=== PATIENT | female | born 1990 | race Caucasian/White ===

== ENCOUNTER → 2016-10-20 | Outpatient (CLI) | payer OTHER ==
[~2016-10-20] MED LIST: AMOX250S5 PO; FRRS300 PO; PENI250S14 PO; PRENTAB26 PO
[2016-10-20 13:09] LABS: HEMATOCRIT 42.9 % (37-47); MEAN CELL VOLUME 90.5 fL (80-100); MEAN CORPUSCULAR HEMOGLOBIN 28.9 pg (25-34); MEAN CORPUSCULAR HGB CONC 31.9 g/dl (32-36); PLATELET COUNT 311 K/uL (130-400); RED BLOOD COUNT 4.74 M/uL (4.2-5.4); WHITE BLOOD COUNT 6.28 K/uL (4.8-10.8)
[2016-10-20 13:27] LABS: ESTIMATED AVERAGE GLUCOSE 94 mg/dl; HA1C FLAG Normal (Normal)
[2016-10-20 13:37] LABS: ALT/SGPT 15 U/L (12-78); AST/SGOT 14 U/L (15-37); BLOOD UREA NITROGEN 12 mg/dl (7-18); BUN/CREATININE RATIO 21.2 (10-20); CALCIUM 8.7 mg/dl (8.5-10.1); CARBON DIOXIDE 29 mmol/L (21-32); CHLORIDE 107 mmol/L (98-107); CREATININE 0.58 mg/dl (0.60-1.20); GLUCOSE 83 mg/dl (70-99); POTASSIUM 3.8 mmol/L (3.5-5.1); SODIUM 142 mmol/L (136-145)
[2016-10-20 13:47] LABS: ALB/GLOB RATIO 1.1 (0.9-2); ALKALINE PHOSPHATASE 52 U/L (45-117)
== END | disposition home or self-care (01) ==
LOC: C.LAB1850 12:23
PROVIDERS: ATTEND Internal Medicine
DX: R53.83 Other fatigue (principal); K59.00 Constipation, unspecified

== ENCOUNTER → 2016-11-08 | Outpatient (CLI) | payer OTHER ==
--- NOTE | 2016-11-08 09:26 | DIAGNOSTIC IMAGING REPORT ---
BILIARY ULTRASOUND CLINICAL HISTORY: R10.11 Right upper quadrant abdominal pain of unknown etiology COMPARISON STUDY: 07/08/2013 FINDINGS: Pancreas appears sonographically normal. The gallbladder appears sonographically normal. The liver appears sonographically normal. There is no right-sided hydronephrosis. There is no ductal dilatation. The common bile duct measures 3 mm. IMPRESSION: Normal biliary ultrasound. Electronically signed by: Pavel Landeros M.D. 11/08/2016 9:24 AM Dictated Date/Time: 11/08/2016 9:23 AM
== END | disposition home or self-care (01) ==
LOC: C.ULTR 08:37
PROVIDERS: ATTEND Internal Medicine
DX: R10.11 Right upper quadrant pain (principal)

== ENCOUNTER 2017-03-02 08:53 | Emergency (ER) | payer OTHER ==
[~2017-03-02] VITALS: Ht 152.4 cm; Wt 46.5 kg
[~2017-03-02 08:53] MED LIST changes: -AMOX250S5 PO
[2017-03-02 09:03] VITALS: TEMP 37.1; Ht 152.4 cm; Wt 46.5 kg
[2017-03-02] MEDS ORDERED: KETOROLAC TROMETHAMINE 60 MG/2 ML VIAL IM STA (09:47)
--- NOTE | 2017-03-02 10:26 | DIAGNOSTIC IMAGING REPORT ---
CHEST 2 VIEWS ROUTINE HISTORY: PRODUCTIVE COUGH X 1 WEEK COMPARISON: Chest 05/05/2006. FINDINGS: The lungs are clear. Cardiac silhouette is normal in size. No pleural effusions. No pneumothorax. IMPRESSION: No acute process. Electronically signed by: Remy Owusu M.D. 03/02/2017 10:25 AM Dictated Date/Time: 03/02/2017 10:24 AM
[2017-03-02] MEDS ORDERED: AMOXICILLIN 250 MG CAP PO STA (10:52)
[2017-03-02] MEDS ORDERED: AMOX250S5 PO (11:00)
[2017-03-02] MEDS ORDERED: ALBUTEROL HFA 8 GM INHALER INH ONE (11:00)
--- NOTE | 2017-03-02 11:01 | EMERGENCY ROOM VISIT NOTE ---
History First contact with patient: : Chief Complaint: ILLNESS Stated Complaint: AB PAIN,CAN'T HEAR OUT OF RIGHT EAR History of Present Illness Patient is an otherwise healthy 26-year-old white female who presents the emergency department for evaluation of cough and upper respiratory symptoms 1 week with now right ear pain and left upper abdominal discomfort. Patient reports that she has had congestion, cough and sore throat for about a week. She reports the cough is productive. She has not been taking any medication for her symptoms. She notes that while coughing last evening, she had the acute onset of a pop in her right ear. She notes that she could not hear properly out of the ear, describing it as feeling like there was an echo in her ear. Since this morning she cannot hear anything out of the right ear and notes that it is painful. Also, this morning she states that she was laying on her back when she had a coughing fit, afterwards she had some left upper abdominal discomfort. She states that the pain is only there when she coughs or when she engages her abdominal muscles like when she sits up. The pain does not radiate. She has no chest pain, no palpitations or shortness of breath. She has not had any fevers. She rates her discomfort a 6/10. She is [place] student and has young children at home, all of whom have been sick. She is not a smoker. Review of Systems Review of systems as per HPI. All other systems reviewed were negative. At least 6 systems reviewed. Past Medical/Surgical History Medical Problems: (1) INDUCTION OF LABOR (2) Intrauterine (3) No Known Active Medical Problems (4) Pain, dental (5) Periapical abscess (6) Periapical abscess Surgical Problems: (1) H/O wisdom tooth extraction (2) [place] Teeth Removal Electronic medical records are reviewed and summarized as above/below. See Problem List. Family History Diabetes mellitus Hypertension Social History Smoking Status: Never Smoker Alcohol Use: none Marital Status: Housing Status: lives with family Occupation Status: unemployed Current/Historical Medications Scheduled Amoxicillin (Amoxil), 10 ML PO Q8 Physical Exam Vital Signs Date Time Temp Pulse Resp B/P (MAP) Pulse Ox O2 Delivery O2 Flow Rate FiO2 03/02/17 11:20 81 16 112/86 99 03/02/17 09:03 37.1 89 18 133/82 98 Physical Exam MENTAL STATUS: Alert and cooperative. Nontoxic appearing. HEAD: Atraumatic, without temporal or scalp tenderness. EYES: PERRL, EOMI, no discharge or injection. EARS: Examination of the right ear notes the TM to be bulging, erythematous with purulent effusion. No perforation noted. Left TM intact, not inflamed, have normal contour. External canals clear. NOSE: Nares patent, turbinates edematous and boggy with clear rhinorrhea. MOUTH: Mucous membranes moist, no lesions, tongue and gums appear normal. THROAT: No pharyngeal injection, exudates, or tonsillar hypertrophy. Airway is patent. NECK: Supple, nontender, no lymphadenopathy. HEART: Regular rate and rhythm without murmurs, ectopy, gallops, or rubs. LUNGS: Clear to auscultation and breath sounds equal, no wheezes, rales, or rhonchi. ABDOMEN: Bowel sounds are present. Abdomen is soft, nontender, nondistended. She has some reproducible discomfort at the left costal margin along the rib. SKIN: Normal. NEUROLOGICAL: Sensory and motor functions grossly intact. Normal gait. Medical Decision & Procedures ER Provider Diagnostic Interpretation: CHEST 2 VIEWS ROUTINE HISTORY: PRODUCTIVE COUGH X 1 WEEK COMPARISON: Chest 05/05/2006. FINDINGS: The lungs are clear. Cardiac silhouette is normal in size. No pleural effusions. No pneumothorax. IMPRESSION: No acute process. Laboratory Results Test 03/02/17 09:10 Urine Test NEG (NEG) Medications Administered Medications (Trade) Dose Ordered Sig/Minal Route Start Time Stop Time Status Last Admin Dose Admin Ketorolac Tromethamine (Toradol Inj) 60 mg NOW STAT IM 03/02/17 09:47 03/02/17 09:50 DC 03/02/17 10:00 60 MG Albuterol (Ventolin Hfa Inhaler) 2 puffs NOW ONCE INH 03/02/17 11:00 03/02/17 11:01 DC 03/02/17 11:17 2 PUFFS ED Course The patient was seen and examined as above. Old records are reviewed. Patient was medicated with Toradol 60 mg IM for her discomfort. Chest x-ray was obtained and was without evidence for acute consolidation, infiltrates or failure. Patient has evidence for an acute right otitis media. She has had a fairly vigorous cough for over a week. I suspect the pain she has in the left upper ribs/abdomen is muscular in nature. Her abdominal exam is otherwise benign. Urine dip and were clear. Conservative care measures were discussed. Patient was issued an albuterol inhaler with a spacer and instructed on its use. She was placed on amoxicillin for the otitis media. The patient rated her discomfort a 6/10 at discharge. Patient was encouraged to use [id number] medication for discomfort. She reports that she cannot swallow pills. She was therefore not prescribed any Tessalon. She declined Hycodan. She was encouraged to follow up with her primary care provider for further care and evaluation if her symptoms are not improving. Differential diagnoses entertained included URI, bronchitis, pneumonia, sinusitis, otitis media, otitis externa, TM perforation, among others. Medical Decision See Emergency Department course Medication Reconcilliation Current Medication List: was personally reviewed by me Blood Pressure Screening Patient's blood pressure: Normal blood pressure Impression Primary Impression: Right otitis media Additional Impression: Upper respiratory infection Departure Information Prescriptions Amoxicillin (AMOXIL) 250 Mg/5 Ml Susp 10 ML PO Q8 for 10 Days, #300 ML Prov: Carrie Hayes PA 03/02/17 Referrals No Doctor, Assigned (PCP) Patient Instructions My [facility] Additional Instructions Amoxicillin 250 mg per 5 mL: Take 10 mL 3 times daily for 10 days for your ear infection. All antibiotics can cause diarrhea. If this occurs and you feel worse or it does not resolve in 1-2 days follow up with your doctor or return to the Emergency Department as this could be signs of serious underlying problems. Any medication can cause an allergic reaction, stop the pills immediately and return to the ER for rash, hives, breathing difficulties, or swelling. Acetaminophen(Tylenol) may be used for fever or pain. Use 1000mg every six hours as needed. Avoid using more than 3000mg in a 24 hour period. (AND/OR) Ibuprofen(Motrin, Advil) may be used for fever or pain. Use 600mg every six hours as needed. Take with food. Avoid using more than 2400mg in a 24 hour period. Do not use 2400mg per day for more than three consecutive days without physician direction. Prolonged inappropriate use can lead to stomach upset or ulcers. Pseudoephedrine(Sudaphed): 30-60mg every 6 hours as needed for nasal congestion. Do not take this with other stimulant products or supplements. Guaifenesin (Mucinex) : Take 1200 mg every 12 hours as needed for nasal/chest congestion, to help thin secretions. Albuterol Inhaler: Take 2 puffs four times daily for seven days, then as needed. Rest and drink plenty of fluids. Continue current medications. Return to the ER for severe headache, neck stiffness, chest pain, difficulty breathing, fevers, vomiting, worsening of your condition, or as needed. Follow up with your primary physician this week for a recheck of your current condition. Problem Qualifiers
[2017-03-02 11:20] VITALS: BP 112/86; PULSE 81; O2SAT 99
== END 2017-03-02 11:22 | disposition home or self-care (01) ==
LOC: C.EDB 08:55 → C.EDC 11:22
DX: R10.10 Upper abdominal pain, unspecified (principal); H66.91 Otitis media, unspecified, right ear; J06.9 Acute upper respiratory infection, unspecified

== ENCOUNTER 2017-06-26 15:57 | Emergency (ER) | payer OTHER ==
[~2017-06-26] VITALS: Ht 152.4 cm; Wt 47.0 kg
[2017-06-26 16:36] VITALS: BP 138/89; PULSE 84; TEMP 36.9; O2SAT 99; Ht 152.4 cm; Wt 47.0 kg
[2017-06-26] MEDS ORDERED: PENI500T2 PO (17:01)
--- NOTE | 2017-06-27 17:01 | EMERGENCY ROOM VISIT NOTE ---
ED Visit Note First contact with patient: 16:40 CHIEF COMPLAINT: Tooth pain. HISTORY OF PRESENT ILLNESS: Ms. Mendez is a 27-year-old white female who ambulates into the complaining of maxillary incisor dental pain. She reports a progressive dental pain for hours over the left maxillary incisor for approximately one week. The pain is now steady and severe and radiates to the face. She has been using ibuprofen but has had mild/moderate relief of her discomfort has been getting became severe. Currently she is complaining of pain in the area of left maxillary incisor. S/ Hhe rates her discomfort 5/10. Her.is pain does radiate through into the left maxillary sinus and into the left frontal area. Her pain worsens with chewing and and palpation. She has ibuprofen with mild relief of her discomfort. She denies any associated symptoms including fevers, chills, sweats, dental trauma, facial swelling, sore throat, difficulty swallowing, voice changes, drooling. REVIEW OF SYSTEMS: As noted above in History of Present Illness. 8 body systems were reviewed with this patient and found to be negative unless noted above otherwise. PMH: Status post wisdom teeth extraction. CURRENT MEDICATION: Patient denies. ALLERGIES TO MEDICATION: Patient denies. SOCIAL HISTORY: Patient is currently employed; she lives with her children and feels safe in her home environment; she denies tobacco and alcohol use. PHYSICAL EXAM: Vital Signs: General: 27 year-old white female in mild distress due to pain, nontoxic appearing, afebrile and hemodynamically stable. Neurological: Awake, alert and oriented to person, place and time. Answering questions appropriately and following commands. Normal gait. Good hand eye coordination. No focal motor or sensory deficits. Skin: Warm, dry and pink. No soft tissue lesions, rashes, or trauma noted. HEENT: No facial swelling noted. There is a mild fullness to the upper lip without erythema. Airway is patent. Patient does have mild to moderate tenderness over both maxillary incisors with more pronounced on the left. I do not appreciate any cavities of the tooth. The gingiva just above the tooth is mildly erythematous but not edematous and is tender to palpation also. No abscesses, palpable. No cervical or submandibular lymphadenopathy. ED COURSE: Patient is assessed as noted above. A chest medication list was reviewed. Patient is educated about her findings and instructed on her treatment plan; she verbalizes understanding and agreement with this plan. CLINIC IMPRESSION: Dental pain. Possible early abscess. DISPOSITION: Patient discharged home in stable condition; prior to departure she was reassessed and subjectively reported she was feeling the same. PLAN: Alternate ibuprofen and acetaminophen every 3 hours for persistent pain. Patient was prescribed Pen-Vee K 500 mg 4 times a day for 10 days; she informed me she had trouble swallowing tablets so encouraged her to crush the tablets and mix with a small amount of water. Patient is encouraged to avoid foods that she had a bite into and consider using a liquid/mechanical soft diet. Patient was encouraged to keep her mouth clean with brushing, flossing and gargling with saltwater 5 times a day. Patient is encouraged to keep her upcoming appointment with this dentistry for definitive care and treatment. Patient was encouraged return ED for worsening/uncontrolled pain, uncontrolled swelling, fevers, facial swelling or any new/concerning symptoms.
== END 2017-06-26 17:06 | disposition home or self-care (01) ==
LOC: C.EDB 15:58 → C.EDD 17:06
DX: K08.89 Other specified disorders of teeth and supporting structures (principal); Z98.818 Other dental procedure status

== ENCOUNTER 2020-10-08 07:35 | Inpatient (IN) ==
[2020-10-08] MEDS ORDERED: OXYTOCIN 30 UNITS/500 ML BAG IV PRN ×4 (08:00→21:20)
[2020-10-08] MEDS ORDERED: LACTATED RINGER'S 1,000 ML IV PRN (08:00)
--- NOTE | 2020-10-08 08:15 | History & Physical Report ---
Date of Service October 08, 2020 Assessment & Plan (1) Encounter for induction of labor: Nirali Mendez is a 28y/o female at 40+ weeks here for induction of labor. Placed on heart monitoring, with tocometry Blood bank on hold given patient's history of iron deficiency anemia (last iron transfusion on 09/29) Initiate Pitocin with advance as tolerated for induction of labor Epidural anesthesia when requested Anticipate vaginal delivery Admission and Anticipated Discharge Date Admission Date: October 08, 2020 History of Present Illness Primary Care Provider: Miranda Zuñiga MD Nirali Mendez is a 30 y/o female at 40+ weeks, presenting for induction; complications with headaches this . Frequently attended OB appointments. infrequent mild contractions; good movement; no fluid loss; no vaginal blood loss Labs: (09/26/2020) Blood type: B+ Antibody screen: negative H.3 Hct: 33.3 WBC: 10.38 Plt: 296 Rubella: immune VDRL/RPR: negative Gonorrhea: negative Chlamydia: negative HIV: negative HbSAg: negative GBS negative negative Glucose tolerance test Allergies Allergy/AdvReac Type Severity Reaction Status Date / Time No Known Allergies Allergy ` Verified 10/07/20 10:57 Home Medications Medication Instructions Recorded Confirmed Type prenat.vits,onofre,cew-fosp-vdwhj 1 tab PO DAILY 02/29/20 10/08/20 History cyproheptadine 4 mg tablet 4 mg PO BID PRN 30 Days #60 tab 05/06/20 10/08/20 Rx magnesium 200 mg PO DAILY 10/08/20 10/08/20 History Past Med/Surg History Medical History Acute mastitis of left breast Bronchitis History of chicken pox Pain, dental Pelvic pain in Periapical abscess Sinusitis Surgical History S/P tooth extraction Family History Father Diabetes Hypertension Grandfather (Paternal) Diabetes Hypertension Pure hypercholesterolemia Grandmother (Maternal) Hypertension Pure hypercholesterolemia Grandmother (Paternal) Pure hypercholesterolemia Grandfather (Maternal) Pure hypercholesterolemia Denies family history of Ovarian cancer Breast cancer Colorectal cancer Social History Smoking Status: Never smoker Hx Alcohol Use: No Hx Substance Use: No Preferred Language: Andorran Communication Ability: Effective Visual Impairment: No Limitations Hearing Ability: Normal Silver Chaser Required: No Beliefs That Will Affect Care: None marital status: single marital status details: latonya Lamar (24) [phone] Current Living Situation: Spouse and Family Current Living Situation Comment: Lives at home with S/O and 4 daughters. 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 Other Information That Helps Us Care for You: No Feels Safe at Home: Yes Safety Concerns: Feels Safe At This Time Seatbelt Use: always Assistive Devices: None Review of Systems Review of Systems: Constitutional: denies fever; chills; sweats; headache Respiratory: denies shortness of breath, difficulty breathing Cardiac: denies chest pain; palpitations; chest pressure Breast: denies breast pain : denies dysuria Physical Exam Physical Exam: General: alert; oriented; no acute distress Cardiac: RRR; no m/g/r Respiratory: CTAB a/p; no wheezes/rales/rhonchi; no increased work of breathing; symmetrical chest rise; no respiratory distress Abdomen: soft; NT/ND; bowel sounds positive Lower extrem: no lower extremity edema or swelling; no deep calf pain; Luz's sign negative b/l Genitourinary: OB Exam Abdomen: + estimated weight (7-8#) OB Exam Monitor Tracing: + external FHT monitor used, + external uterine monitor used, + category I and + normal FHT variability Manual exam per Dr. Leiva Results & Data Results & Data ([facility]) Vital Signs (Past 12 Hours) Vital Signs Pulse BP 10/08/20 07:49 103 H 120/73 Medications Administered Current Inpatient Medications Oxytocin (Pitocin) 30 units in 500 mls @ 333.333 mls/hr IV .Q1H30M PRN; Protocol PRN Reason: Bleeding Control Stop: 11/07/20 07:59 Oxytocin (Pitocin) 30 units in 500 mls @ 2 mls/hr IV .Q24H PRN; Protocol PRN Reason: Labor Induction/Augmentation Stop: 10/10/20 07:59 Lactated Ringer's (Lr) 1,000 mls @ 125 mls/hr IV .Q8H PRN; Protocol PRN Reason: L&D Protocol Stop: 10/10/20 07:59 Oxytocin (Pitocin) 30 units in 500 mls @ 333.333 mls/hr IV .Q1H30M PRN; Protocol PRN Reason: Bleeding Control Stop: 11/07/20 08:00 Lactated Ringer's (Lr) 1,000 mls @ 125 mls/hr IV .Q8H PRN; Protocol PRN Reason: L&D Protocol Stop: 10/10/20 08:00 Resident Activity Tracking Resident Involvement: Resident Care Provided Care Provided: Adult Hospital Medicine
[2020-10-08 08:19] LABS: Hematocrit (blood only) 36.2 % (37-47); Hemoglobin 11.1 g/dL (12.0-16.0); Mean Corpuscular Hemoglobin 24.4 pg (25-34); Mean Corpuscular Hgb Conc 30.7 g/dL (32-36); Mean Corpuscular Volume 79.6 fL (80-100); Platelet Count 199 K/uL (130-400); RDW Coefficient of Variation 26.7 % (11.5-14.5); RDW Standard Deviation 75.7 fL (36.4-46.3); Red Blood Count 4.55 M/uL (4.2-5.4); White Blood Count 10.15 K/uL (4.8-10.8)
[2020-10-08] MEDS: LACTATED RINGER'S 1,000 ML IV PRN ×2 (08:55→13:00)
[2020-10-08] MEDS ORDERED: NALOXONE HCL 0.4 MG/1 ML VIAL/CARP IV PRN (13:02)
[2020-10-08] MEDS ORDERED: fentaNYL 2MCG/ML ROPIVACAINE 1.25MG/ML 100 ML BAG EPI PRN ×2 (13:02→18:09)
[2020-10-08] MEDS ORDERED: diphenhydrAMINE 50 MG/ML VIAL IV PRN (13:02)
[2020-10-08] MEDS ORDERED: NALOXONE HCL 1 MG in SODIUM CHLORIDE 0.9% 1000ML 1,000 ML IV PRN (13:02)
[2020-10-08] MEDS ORDERED: ePHEDrine sulfate 50 MG/ML AMP IV PRN (13:02)
[2020-10-08] MEDS ORDERED: ONDANSETRON INJ 2 MG/ML 2 ML VIAL IV PRN (13:02)
--- NOTE | 2020-10-08 13:07 | Anesthesiology Consultation ---
Date of Service October 08, 2020 Assessment & Plan Chart Review Chart Review: Patient NOT seen in Pre Admission Testing and Acceptable Risk for Labor Epidural Consults Requested none ASA ASA2 Proposed Anesthesia Anesthesia Type: Labor Epidural and CSE Risk / Benefits Reviewed With: PT / POA / Parent / Guardian, Accepts Plan and Informed Consent Obtained History Height/Weight Height: 5 ft Weight: 63.503 kg Allergies Allergy/AdvReac Type Severity Reaction Status Date / Time No Known Allergies Allergy ` Verified 10/07/20 10:57 Medications Home Medications Medication Instructions Recorded Confirmed Last Taken prenat.vits,onofre,rut-wvlp-rhnvi 1 tab PO DAILY 02/29/20 10/08/20 10/07/20 12:00 cyproheptadine 4 mg tablet 4 mg PO BID PRN 30 Days #60 tab 05/06/20 10/08/20 Unknown magnesium 200 mg PO DAILY 10/08/20 10/08/20 10/07/20 12:00 Active Medications Generic Name Dose Route Start Last Admin Trade Name Freq PRN Reason Stop Dose Admin Oxytocin 30 units in 500 mls @ 8 mls/hr 10/08/20 08:00 10/08/20 11:45 Pitocin IV 10/10/20 07:59 0.48 units/hr .Q24H PRN 8 mls/hr Labor Induction/Augmentation Titration Protocol 0.48 UNITS/HR Lactated Ringer's 1,000 mls @ 125 mls/hr 10/08/20 08:01 10/08/20 13:00 Lr IV 10/10/20 08:00 999 mls/hr .Q8H PRN Administration L&D Protocol Protocol NPO Date Last Intake of Fluids: 10/08/20 Time Last Intake of Fluids: 11:00 Date Last Intake of Solids: 10/08/20 Time Last Intake of Solids: 07:00 Past Medical History Medical History Acute mastitis of left breast Bronchitis History of chicken pox Pain, dental Pelvic pain in Periapical abscess Sinusitis Exercise / Class Metabolic Activity II 4-5 Yardwork/Stairs/Walk up hill Past Family History Family History Father Diabetes Hypertension Grandfather (Paternal) Diabetes Hypertension Pure hypercholesterolemia Grandmother (Maternal) Hypertension Pure hypercholesterolemia Grandmother (Paternal) Pure hypercholesterolemia Grandfather (Maternal) Pure hypercholesterolemia Denies family history of Ovarian cancer Breast cancer Colorectal cancer Past Surgical History Surgical History S/P tooth extraction Past Anesthesia History No Hx of Anesthesia Complications and No Family Hx of Anesthesia Complications History of PONV No Hx of PONV and No Hx of Motion Sickness Social History Smoking Status: Never smoker Hx Alcohol Use: No Hx Substance Use: No Review of Systems no chest pain or sob Physical Exam Vital Signs Last Vital Signs Temp 36.7 C 10/08/20 12:09 Pulse 96 H 10/08/20 13:02 Resp 18 10/08/20 12:09 BP 106/66 10/08/20 12:09 Pulse Ox 100 10/08/20 13:02 ENMT Mouth: no TMJ abnormality Thyromental Distance: > or= 3.5 Finger Breadths Mallampati Class: II Neck normal visual inspection Respiratory normal respiratory effort Auscultation: lungs clear to auscultation bilaterally Cardiovascular Rate/Rhythm: regular rate and regular rhythm Musculoskeletal Spine: normal cervical ROM Neurologic moves all extremities Psychiatric Orientation: alert and oriented x 3 Testing Laboratory Results 10/08/20 08:07
[2020-10-08] MEDS ORDERED: fentaNYL citrate 100 MCG/2 ML VIAL ONE (13:32)
[2020-10-08] MEDS ORDERED: BUPIVACAINE 0.25% 30 ML VIAL ONE (13:32)
[2020-10-08] MEDS ORDERED: SODIUM CHLORIDE 0.9% INJ 10 ML VIAL ONE (13:32)
[2020-10-08] MEDS ORDERED: ePHEDrine sulfate 50 MG/ML AMP ONE (13:32)
[2020-10-08] MEDS ORDERED: fentaNYL 2MCG/ML ROPIVACAINE 1.25MG/ML 100 ML BAG EPI ONE (13:33)
[2020-10-08] MEDS ORDERED: Nursing to Pharmacy Communication SCH ×2 (18:00→22:00)
--- NOTE | 2020-10-08 21:06 | Delivery Summary ---
Vaginal Delivery Summary Date of Service October 08, 2020 Spontaneous vaginal delivery the patient was induced for postdates initially with Pitocin and then received an epidural artificial rupture of membranes she then progressed to fully dilated she pushed over several contractions delivering a baby in occiput anterior position clear fluid loose nuchal cord passed overhead mouth and nares suctioned with bulb gentle traction no excessive force live vigorous female cord clamped and cut cord blood obtained placenta removed with traction IV Pitocin started there was no tearing estimated blood loss 150 mL sponge and instrument counts correct Vaginal Delivery [facility] Delivery Charge Vaginal Delivery Codes: 81183 global code for the antepartum, delivery, and post- Delivery Type Details: Procedure Anesthesia type: Epidural
[2020-10-08] MEDS ORDERED: SUPERCREAM 0.870% 15 GM JAR EXT PRN (21:20)
[2020-10-08] MEDS ORDERED: CYPROHEPTADINE HCL 4 MG TAB PO PRN (21:20)
[2020-10-08] MEDS ORDERED: HYDROCORTISONE ACETATE 25 MG SUPP PR PRN (21:20)
[2020-10-08] MEDS ORDERED: oxyCODONE/ACETAMINOPHEN 5mg/325mg TAB PO PRN (21:20)
[2020-10-08] MEDS ORDERED: DIPHTHERIA/TETANUS/PERTUSSIS 0.5 ML SYR/VIAL IM ONE (21:20)
[2020-10-08] MEDS ORDERED: ACETAMINOPHEN 325 MG TAB PO PRN (21:20)
[2020-10-08] MEDS ORDERED: BENZOCAINE 20% AER SPR 82.5 GM CAN EXT PRN (21:20)
[2020-10-08] MEDS ORDERED: bisacodyL 10 MG SUPP PR PRN (21:20)
[2020-10-08] MEDS ORDERED: IBUPROFEN 600 MG TAB PO PRN (21:20)
[2020-10-08] MEDS ORDERED: IBUPROFEN SUSPENSION 100MG/5ML 120ML PO PRN (22:15)
[2020-10-08] MEDS: IBUPROFEN SUSPENSION 100MG/5ML 120ML PO PRN (22:34)
[2020-10-09] MEDS ORDERED: ACETAMINOPHEN SUSP 160 MG/5 ML BTL PO PRN (00:30)
[2020-10-09] MEDS ORDERED: ACETAMINOPHEN SUSP 160 MG/5 ML UDC PO PRN (00:30)
[2020-10-09] MEDS: IBUPROFEN SUSPENSION 100MG/5ML 120ML PO PRN (04:07)
[2020-10-09 06:22] LABS: Hematocrit (blood only) 33.6 % (37-47); Hemoglobin 10.3 g/dL (12.0-16.0); Mean Corpuscular Hgb Conc 30.7 g/dL (32-36); Mean Corpuscular Volume 78.3 fL (80-100); Mean Platelet Volume 10.4 fL (7.4-10.4); Platelet Count 184 K/uL (130-400); RDW Coefficient of Variation 26.8 % (11.5-14.5); RDW Standard Deviation 74.2 fL (36.4-46.3); Red Blood Count 4.29 M/uL (4.2-5.4); White Blood Count 13.39 K/uL (4.8-10.8)
--- NOTE | 2020-10-09 06:24 | Obstetrical Progress Note ---
Date of Service <Casey Monae MD - Last Filed: 10/09/20 07:40> October 09, 2020 Assessment & Plan <Casey Monae MD - Last Filed: 10/09/20 07:40> (1) (normal spontaneous vaginal delivery): PPD #1 - s/p Doing well. Ambulating well. Voiding well. Continue routine care Following discharge to have follow-up in [address] Leiva Subjective <Casey Mnoae MD - Last Filed: 10/09/20 07:40> Nirali Mendez is 30y/o PPD#1 s/p at 40+ weeks, ambulating without difficulty, voiding well, passing small amounts of gas, having improving/smaller amount of lochia, having cramping abdominal pain, tolerating oral intake well without difficulty or nausea/vomiting. Physical Exam <Casey Monae MD - Last Filed: 10/09/20 07:40> HEENT: conjunctive pink, sclera anicteric Heart: regular rate, no appreciable murmur/gallop/rub Lungs: Clear to auscultation, no wheezes, rhonchi, or areas of decreased breath sounds Abdomen: uterine fundus firm, non-tender, 2cm below umbilicu Extremities: no cyanosis, edema, clubbing; nail beds pink; no calf tenderness Results & Data ([facility]) <Casey Monae MD - Last Filed: 10/09/20 07:40> Vital Signs (Past 12 Hours) Vital Signs Temp Pulse Pulse Resp BP BP Pulse Ox 10/09/20 04:05 36.5 C 74 16 131/88 97 10/09/20 00:15 36.7 C 92 H 17 113/76 95 10/08/20 23:16 106 H 111/58 L 10/08/20 23:02 107 H 116/66 10/08/20 23:00 107 H 20 116/66 10/08/20 22:31 106 H 117/64 10/08/20 22:30 107 H 18 116/66 10/08/20 22:16 102 H 110/56 L 10/08/20 22:02 109 H 121/57 L 10/08/20 22:00 109 H 20 121/57 L 10/08/20 21:47 142 H 147/80 H 10/08/20 21:45 142 H 18 147/80 H 10/08/20 21:31 115 H 116/65 10/08/20 21:30 115 H 18 116/65 10/08/20 21:16 113 H 123/59 L 10/08/20 21:15 113 H 18 123/59 L 10/08/20 21:02 113 H 125/60 97 10/08/20 21:00 113 H 18 123/59 L 10/08/20 20:57 132 H 98 10/08/20 20:52 135 H 98 10/08/20 20:47 176 H 100 10/08/20 20:42 123 H 100 10/08/20 20:39 122 H 132/79 10/08/20 20:37 118 H 100 10/08/20 20:32 110 H 97 10/08/20 20:30 20 10/08/20 20:27 115 H 98 10/08/20 20:24 112 H 121/65 10/08/20 20:22 103 H 99 10/08/20 20:17 107 H 99 10/08/20 20:12 122 H 99 10/08/20 20:08 120 H 130/70 10/08/20 20:07 115 H 100 10/08/20 20:02 116 H 100 10/08/20 20:00 18 10/08/20 19:57 118 H 99 10/08/20 19:55 106 H 126/74 10/08/20 19:52 109 H 99 10/08/20 19:47 103 H 99 10/08/20 19:42 100 H 99 10/08/20 19:40 104 H 110/68 10/08/20 19:37 99 H 98 10/08/20 19:32 100 H 100 10/08/20 19:30 20 10/08/20 19:27 107 H 99 10/08/20 19:25 107 H 118/74 10/08/20 19:22 101 H 98 10/08/20 19:17 118 H 100 10/08/20 19:12 107 H 99 10/08/20 19:09 108 H 113/65 10/08/20 19:07 106 H 99 10/08/20 19:02 109 H 99 10/08/20 18:59 37.2 C 20 10/08/20 18:57 119 H 99 05/12/21 18:54 111 H 99/56 L 10/08/20 18:52 116 H 99 10/08/20 18:50 16 10/08/20 18:47 107 H 98 10/08/20 18:42 109 H 99 10/08/20 18:39 103 H 110/66 10/08/20 18:37 109 H 99 10/08/20 18:32 108 H 98 10/08/20 18:27 104 H 98 10/08/20 18:25 107 H 113/66 Laboratory Results 10/09/20 10/08/20 10/08/20 Range/Units 06:11 08:40 08:40 WBC 13.39 H (4.8-10.8) K/uL RBC 4.29 (4.2-5.4) M/uL Hgb 10.3 L (12.0-16.0) g/dL Hct 33.6 L (37-47) % MCV 78.3 L (80-100) fL MCH 24.0 L (25-34) pg MCHC 30.7 L (32-36) g/dL RDW Std Deviation 74.2 H (36.4-46.3) fL RDW Coeff of Toma 26.8 H (11.5-14.5) % Plt Count 184 (130-400) K/uL MPV 10.4 (7.4-10.4) fL COVID-19 Eval [facility] SARS-CoV-2, RNA, NAAT NEGATIVE (NEGATIVE) 10/08/20 Range/Units 08:07 WBC 10.15 (4.8-10.8) K/uL RBC 4.55 (4.2-5.4) M/uL Hgb 11.1 L (12.0-16.0) g/dL Hct 36.2 L (37-47) % MCV 79.6 L (80-100) fL MCH 24.4 L (25-34) pg MCHC 30.7 L (32-36) g/dL RDW Std Deviation 75.7 H (36.4-46.3) fL RDW Coeff of Toma 26.7 H (11.5-14.5) % Plt Count 199 (130-400) K/uL MPV 10.0 (7.4-10.4) fL COVID-19 Eval Order SARS-CoV-2, RNA, NAAT (NEGATIVE) Medications Administered Current Inpatient Medications Acetaminophen (Acetaminophen Susp 160 Mg/5 Ml Btl) 650 mg PO Q6H PRN PRN Reason: Pain/RIZZO/Fever Stop: 11/08/20 00:28 Last Admin: 10/09/20 00:42 Dose: 650 mg Documented by: Benzocaine (Benzocaine 20% Aer Spr 82.5 Gm Can) 1 appln EXT PRN PRN PRN Reason: Perineal Discomfort Stop: 11/07/20 21:19 Bisacodyl (Bisacodyl 5 Mg Tabec) 5 mg PO 2000 [facility] Stop: 10/09/20 20:01 Bisacodyl (Bisacodyl 10 Mg Supp) 10 mg CO DAILY PRN PRN Reason: No BM on 2nd post- day Stop: 11/07/20 21:19 Cocaine HCl (Supercream 0.870% 15 Gm Jar) 1 gm EXT BID PRN PRN Reason: Hemorrhoidal Inflammation Stop: 10/22/20 21:19 Cyproheptadine HCl (Cyproheptadine Hcl 4 Mg Tab) 4 mg PO BID PRN PRN Reason: migraine headache Stop: 11/07/20 21:19 Docusate Sodium (Docusate Sodium 100 Mg Cap) 100 mg PO DAILY@ [facility] Stop: 11/08/20 07:59 Hydrocortisone (Hydrocortisone Acetate 25 Mg Supp) 25 mg CO BID PRN PRN Reason: Hemorrhoidal Inflammation Stop: 11/07/20 21:19 Oxytocin (Pitocin) 30 units in 500 mls @ 333.333 mls/hr IV .Q1H30M PRN; Protocol PRN Reason: Bleeding Control Stop: 11/07/20 21:19 Ibuprofen (Ibuprofen Suspension 100mg/5ml 120ml) 600 mg PO Q4H PRN PRN Reason: Pain/RIZZO/Cramping/Fever Stop: 11/07/20 22:14 Last Admin: 10/09/20 04:07 Dose: 600 mg Documented by: Magnesium Oxide (Magnesium Oxide 400 Mg Tab) 200 mg PO DAILY [facility] Stop: 11/08/20 08:59 Oxycodone/Acetaminophen (Oxycodone/Acetaminophen 5mg/325mg Tab) 1 tab PO Q4H PRN PRN Reason: Pain not relieved by... Stop: 10/22/20 21:19 Prenat Multivit/Acampo/Iron/Folic Ac ( Vitamin 1 Tab) 1 tab PO DAILY@08 [facility] Stop: 11/08/20 07:59 <Celia Leiva MD, FACOG - Last Filed: 10/09/20 10:05> Co-Signing Physician Notes Resident Physician Supervision Note: I interviewed and examined the patient. Discussed with Dr. Monae and agree with findings and plan as documented in the note. Any exceptions or clarifications are listed here: [None] Documented By: Celia Leiva MD, FACOG Resident Activity Tracking <Casey Monae MD - Last Filed: 10/09/20 07:40> Resident Involvement: Resident Care Provided Care Provided: OB Delivery
[2020-10-09] MEDS ORDERED: DOCUSATE SODIUM 100 MG CAP PO SCH (08:00)
[2020-10-09] MEDS ORDERED: PRENATAL VITAMIN 1 TAB PO SCH (08:00)
--- NOTE | 2020-10-09 08:01 | Anesthesia Procedure Note ---
Date of Service October 09, 2020 Anesthesia Post Epidural Note Vital Signs Vital Signs: Temp Pulse Resp BP Pulse Ox 36.5 C 74 16 131/88 97 10/09/20 04:05 10/09/20 04:05 10/09/20 04:05 10/09/20 04:05 10/09/20 04:05 Pain Intensity Bilateral Abdomen: Pain Intensity: 8 Back: Pain Intensity: 8 Notes Mental Status: alert / awake / arousable and participated in evaluation Patient Amnestic to Procedure: No Nausea / Vomiting: adequately controlled Pain: adequately controlled Airway Patency, RR, SpO2: stable & adequate BP & HR: stable & adequate Hydration State: stable & adequate Neuraxial Anesthesia: was administered and sensory block is resolving Anesthetic Complications: no major complications apparent and Pt Satisfied with anesthetic care Epidural: Removed without complications and With tip intact
[2020-10-09] MEDS: IBUPROFEN 200 MG/10 ML UDC PO PRN ×3 (08:09→18:46)
[2020-10-09] MEDS ORDERED: NON-FORMULARY MEDICATION (Prenat.Vits,Cal,Min-Iron-Folic tablet) PO SCH (09:00)
[2020-10-09] MEDS: ACETAMINOPHEN SUSP 325 MG/10.15 ML UDC PO PRN ×2 (11:29→20:21)
[2020-10-09] MEDS ORDERED: MULTIVITAMIN CHEWABLE TAB PO ONE (12:15)
[2020-10-09] MEDS: MAGNESIUM OXIDE 400 MG TAB PO SCH (12:15)
[2020-10-09] MEDS ORDERED: Nursing to Pharmacy Communication SCH (12:15)
[2020-10-09] MEDS ORDERED: bisacodyL 5 MG TABEC PO SCH (20:00)
[2020-10-09] MEDS ORDERED: DOCUSATE SODIUM SYRUP 100 MG/10 ML UDC PO SCH (21:00)
[2020-10-09] MEDS ORDERED: ONDANSETRON 4 MG OD TAB PO PRN (22:13)
--- NOTE | 2020-10-10 06:09 | Obstetrical Progress Note ---
Date of Service <Casey Monae MD - Last Filed: 10/10/20 07:04> October 10, 2020 Assessment & Plan <Casey Monae MD - Last Filed: 10/10/20 07:04> (1) (normal spontaneous vaginal delivery): PPD #2 - s/p Doing well. Ambulating well. Voiding well. Continue routine care Following discharge to have follow-up in [address] Leiva Subjective <Casey Monae MD - Last Filed: 10/10/20 07:04> Nirali Mendez is 30y/o PPD#2 s/p at 40+ weeks, ambulating without difficulty, voiding well, passing gas, having smaller amount of lochia, continuing to have mild cramping abdominal pain, tolerating oral intake well without difficulty or nausea/vomiting. Physical Exam <Casey Monae MD - Last Filed: 10/10/20 07:04> HEENT: conjunctive pink, sclera anicteric Heart: regular rate, no appreciable murmur/gallop/rub Lungs: Clear to auscultation, no wheezes, rhonchi, or areas of decreased breath sounds Abdomen: uterine fundus firm, non-tender, 3cm below umbilicus Extremities: no cyanosis, edema, clubbing; nail beds pink; no calf tenderness Results & Data ([facility]) <Casey Monae MD - Last Filed: 10/10/20 07:04> Vital Signs (Past 12 Hours) Vital Signs Temp Pulse Resp BP Pulse Ox 10/09/20 23:26 36.7 C 87 16 124/84 97 10/09/20 18:43 36.6 C 88 18 116/80 98 Laboratory Results 10/10/20 Range/Units 06:02 Hgb 10.6 L (12.0-16.0) g/dL Hct 34.9 L (37-47) % Medications Administered Current Inpatient Medications Acetaminophen (Acetaminophen Susp 325 Mg/10.15 Ml Udc) 650 mg PO Q6H PRN PRN Reason: Pain/RIZZO/Fever Stop: 11/08/20 07:36 Last Admin: 10/09/20 20:21 Dose: 650 mg Documented by: Benzocaine (Benzocaine 20% Aer Spr 82.5 Gm Can) 1 appln EXT PRN PRN PRN Reason: Perineal Discomfort Stop: 11/07/20 21:19 Bisacodyl (Bisacodyl 10 Mg Supp) 10 mg ID DAILY PRN PRN Reason: No BM on 2nd post- day Stop: 11/07/20 21:19 Cocaine HCl (Supercream 0.870% 15 Gm Jar) 1 gm EXT BID PRN PRN Reason: Hemorrhoidal Inflammation Stop: 10/22/20 21:19 Cyproheptadine HCl (Cyproheptadine Hcl 4 Mg Tab) 4 mg PO BID PRN PRN Reason: migraine headache Stop: 11/07/20 21:19 Docusate Sodium (Docusate Sodium Syrup 100 Mg/10 Ml Udc) 100 mg PO BID [facility] Stop: 11/08/20 20:59 Last Admin: 10/09/20 20:21 Dose: 100 mg Documented by: Hydrocortisone (Hydrocortisone Acetate 25 Mg Supp) 25 mg ID BID PRN PRN Reason: Hemorrhoidal Inflammation Stop: 11/07/20 21:19 Oxytocin (Pitocin) 30 units in 500 mls @ 333.333 mls/hr IV .Q1H30M PRN; Protocol PRN Reason: Bleeding Control Stop: 11/07/20 21:19 Ibuprofen (Ibuprofen 200 Mg/10 Ml Udc) 600 mg PO Q4H PRN PRN Reason: Pain/RIZZO/Cramping/Fever Stop: 11/08/20 07:37 Last Admin: 10/10/20 06:34 Dose: 600 mg Documented by: Magnesium Oxide (Magnesium Oxide 400 Mg Tab) 200 mg PO DAILY [facility] Stop: 11/08/20 08:59 Last Admin: 10/09/20 12:15 Dose: Not Given Documented by: Multivitamins/Folic Acid/Vitamin C (Multivitamin Chewable Tab) 1 tab PO DAILY@0800 [facility] Stop: 11/09/20 07:59 Ondansetron HCl (Ondansetron 4 Mg Od Tab) 4 mg PO Q4H PRN PRN Reason: Nausea And Vomiting Stop: 11/08/20 22:12 Last Admin: 10/09/20 22:19 Dose: 4 mg Documented by: Oxycodone/Acetaminophen (Oxycodone/Acetaminophen 5mg/325mg Tab) 1 tab PO Q4H PRN PRN Reason: Pain not relieved by... Stop: 10/22/20 21:19 <Carleen Ríos MD, FACOG - Last Filed: 10/10/20 07:38> Co-Signing Physician Notes Resident Physician Supervision Note: I interviewed and examined the patient. Discussed with Dr. Monae and agree with findings and plan as documented in the note. Any exceptions or clarifications are listed here: Doing well ppd 2. Plan d/c. Instructions given. Documented By: Carleen Ríos MD, FACOG Resident Activity Tracking <Casey Monae MD - Last Filed: 10/10/20 07:04> Resident Involvement: Resident Care Provided Care Provided: OB Delivery
[2020-10-10 06:15] LABS: Hematocrit (blood only) 34.9 % (37-47); Hemoglobin 10.6 g/dL (12.0-16.0)
[2020-10-10] MEDS: IBUPROFEN 200 MG/10 ML UDC PO PRN (06:34)
[2020-10-10] MEDS ORDERED: MULTIVITAMIN CHEWABLE TAB PO SCH (08:00)
[2020-10-10] MEDS: MAGNESIUM OXIDE 400 MG TAB PO SCH (09:44)
== END 2020-10-10 12:45 | disposition home or self-care (01) | DRG 807 ==
LOC: 4S1 07:35 → 4S2 23:38

== ENCOUNTER 2022-08-05 12:29 | Inpatient (IN) ==
[2022-08-05] MEDS ORDERED: LIDOCAINE 1% LOCAL 20 ML VIAL INFIL PRN (12:55)
[2022-08-05] MEDS ORDERED: OXYTOCIN 30 UNITS/500 ML BAG IV PRN ×3 (12:55→20:48)
--- NOTE | 2022-08-05 13:02 | History & Physical Report ---
Date of Service August 05, 2022 Assessment & Plan (1) Encounter for elective induction of labor: (2) 39 weeks gestation of : Plan admit, iv, labs, arom/pit. fhts categ 1, patient ready to proceed. arom completed. Admission and Anticipated Discharge Date Admission Date: August 05, 2022 History of Present Illness Chief Complaint: induction, elective Primary Care Provider: Miranda Zuñiga MD 32yo at 39+wks egkathy presents to L&D with above cc. She wants elective induction today. Denies rom, vb. +FM. No ctx. PNC c/b 1. [place] 2. Late care PNL rh pos, ri, gbs neg OBH: x 5 GYNH: nl paps, no stds Allergies Allergy/AdvReac Type Severity Reaction Status Date / Time No Known Allergies Allergy ` Verified 08/04/22 08:36 Home Medications Medication Instructions Recorded Confirmed Type prenat.vits,onofre,chu-gigk-djwan 1 tab PO DAILY 02/29/20 08/05/22 History lansoprazole 30 mg capsule,delayed 30 mg PO DAILY #30 caps 03/24/22 08/05/22 Rx release (Prevacid) magnesium PO 03/24/22 08/04/22 History Patient History Medical History Acute mastitis of left breast Anemia affecting Bronchitis Encounter for induction of labor Gestational proteinuria History of chicken pox Migraine headache New onset of headache in patient (normal spontaneous vaginal delivery) Pain, dental Pelvic pain in Periapical abscess Sinusitis Surgical History S/P tooth extraction Family History Father Diabetes Hypertension Grandfather (Paternal) Diabetes Hypertension Pure hypercholesterolemia Grandmother (Maternal) Hypertension Pure hypercholesterolemia Grandmother (Paternal) Pure hypercholesterolemia Grandfather (Maternal) Pure hypercholesterolemia Denies family history of Ovarian cancer Breast cancer Colorectal cancer Social History (Updated 02/25/22 @ 13:42 by Chloe Buitrago RN) Smoking Status: Never smoker Second Hand Exposure: No; Do You Dip or Chew Tobacco: No; Tobacco Cessation Education Requested by Patient: No Hx Alcohol Use: No Hx Substance Use: No Preferred Language: Bulgarian Communication Ability: Effective Visual Impairment: No Limitations Hearing Ability: Normal Knitter Wire Mesh Required: No Beliefs That Will Affect Care: None marital status: marital status details: Antonino Lamar ([phone] Current Living Situation: Spouse Current Living Situation Comment: Antonino, 5 daughters current occupational status: employed and student current occupation: homemaker Other Information That Helps Us Care for You: No Feels Safe at Home: Yes Safety Concerns: Feels Safe At This Time Seatbelt Use: always Assistive Devices: None Review of Systems as per Subjective / HPI Physical Exam Constitutional: WD/WN, vitals as above Respiratory: normal respiratory effort, lungs clear to auscultation Cardiovascular: Rate/Rhythm: regular rate and regular rhythm Gastrointestinal (Abdomen): soft gravid nt Musculoskeletal: no edema nontender calves Neurologic: grossly normal Psychiatric: A+Ox3, euthymic affect Genitourinary: Manual OB Exam: + cervical dilation (2-3), + cervical effacement 50%, + station -2 and + amniotic fluid (AROM) clear OB Exam Monitor Tracing: + external FHT monitor used, + external uterine monitor used (irreg), + category I and + normal FHT variability Results & Data ([facility]) Vital Signs (Past 12 Hours) Vital Signs Temp Pulse Resp BP 08/05/22 12:50 101 H 126/79 08/05/22 12:46 99.0 F 16 Coding Level of Care Code None Diagnoses Encounter for elective induction of labor Z34.90 39 weeks gestation of Z3A.39
[2022-08-05 13:35] LABS: Hematocrit (blood only) 32.4 % (37.0-47.0); Hemoglobin 10.2 g/dl (12.0-16.0); Mean Corpuscular Hgb Conc 31.5 g/dL (32.0-36.0); Mean Corpuscular Volume 73.1 fL (80.0-100.0); Platelet Count 292 K/uL (130-400); RDW Coefficient of Variation 15.7 % (11.5-14.5); Red Blood Count 4.43 M/uL (4.20-5.40); White Blood Count 12.01 K/ul (4.8-10.8)
[2022-08-05] MEDS: LACTATED RINGER'S 1,000 ML IV PRN ×3 (13:39→18:15)
[2022-08-05] MEDS ORDERED: BUPIVACAINE 0.25% 30 ML VIAL ONE (15:42)
[2022-08-05] MEDS ORDERED: ePHEDrine sulfate 50 MG/ML AMP ONE (15:42)
[2022-08-05] MEDS ORDERED: fentaNYL citrate 100 MCG/2 ML VIAL ONE (15:42)
[2022-08-05] MEDS ORDERED: SODIUM CHLORIDE 0.9% INJ 10 ML VIAL ONE (15:42)
[2022-08-05] MEDS ORDERED: LIDOCAINE 2%/EPINEPHRINE 1:200,000 20 ML SDV ONE (15:42)
[2022-08-05] MEDS ORDERED: fentaNYL 2MCG/ML ROPIVACAINE 1.25MG/ML 100 ML BAG EPI ONE (15:43)
[2022-08-05] MEDS ORDERED: NALOXONE HCL 0.4 MG/1 ML VIAL/CARP IV PRN (15:46)
[2022-08-05] MEDS ORDERED: NALOXONE HCL 1 MG in SODIUM CHLORIDE 0.9% 1000ML 1,000 ML IV PRN (15:46)
[2022-08-05] MEDS ORDERED: ePHEDrine sulfate 50 MG/ML AMP IV PRN (15:46)
[2022-08-05] MEDS ORDERED: fentaNYL 2MCG/ML ROPIVACAINE 1.25MG/ML 100 ML BAG EPI PRN (15:46)
[2022-08-05] MEDS ORDERED: diphenhydrAMINE 50 MG/ML VIAL IV PRN (15:46)
[2022-08-05] MEDS ORDERED: NALBUPHINE HCL INJ 10 MG/ML AMP IV PRN (15:46)
--- NOTE | 2022-08-05 15:46 | Anesthesiology Consultation ---
Date of Service August 05, 2022 Assessment & Plan (1) Encounter for pre-operative examination: Chart Review Chart Review: Acceptable Risk for Surgery and Patient NOT seen in Pre Admission Testing Consults Requested none History Height/Weight Height: 5 ft Weight: 58.06 kg Allergies Allergy/AdvReac Type Severity Reaction Status Date / Time No Known Allergies Allergy ` Verified 08/04/22 08:36 Medications Home Medications Medication Instructions Recorded Confirmed Last Taken prenat.vits,onofre,kru-bypo-tsrvn 1 tab PO DAILY 02/29/20 08/05/22 08/05/22 lansoprazole 30 mg capsule,delayed 30 mg PO DAILY #30 caps 03/24/22 08/05/22 Unknown release (Prevacid) magnesium PO 03/24/22 08/04/22 Unknown Active Medications Generic Name Dose Route Start Last Admin Trade Name Freq PRN Reason Stop Dose Admin Lactated Ringer's 1,000 mls @ 125 mls/hr 08/05/22 12:55 08/05/22 14:43 Lr IV 08/07/22 12:54 125 mls/hr .Q8H PRN Administration L&D Protocol Protocol Oxytocin 30 units in 500 mls @ 3 mls/hr 08/05/22 12:55 08/05/22 14:45 Pitocin IV 08/07/22 12:54 0.18 units/hr .Q24H PRN 3 mls/hr Labor Induction/Augmentation Titration Protocol 0.18 UNITS/HR Past Medical History Medical History Acute mastitis of left breast Anemia affecting Bronchitis Encounter for induction of labor Gestational proteinuria History of chicken pox Migraine headache New onset of headache in patient (normal spontaneous vaginal delivery) Pain, dental Pelvic pain in Periapical abscess Sinusitis Past Family History Family History Father Diabetes Hypertension Grandfather (Paternal) Diabetes Hypertension Pure hypercholesterolemia Grandmother (Maternal) Hypertension Pure hypercholesterolemia Grandmother (Paternal) Pure hypercholesterolemia Grandfather (Maternal) Pure hypercholesterolemia Denies family history of Ovarian cancer Breast cancer Colorectal cancer Past Surgical History Surgical History S/P tooth extraction Social History Smoking Status: Never smoker Do You Dip or Chew Tobacco: No Hx Alcohol Use: No Hx Substance Use: No Physical Exam Vital Signs Last Vital Signs Temp 98.6 F 08/05/22 14:10 Pulse 104 H 08/05/22 15:42 Resp 16 08/05/22 12:46 BP 116/80 08/05/22 15:42 Pulse Ox 97 08/05/22 15:41 Testing Laboratory Results 08/05/22 13:03 Blood Type B Positive 08/05/22 13:03 Antibody Screen NEGATIVE 08/05/22 13:03
--- NOTE | 2022-08-05 17:14 | Labor Progress Brief Note ---
Date of Service August 05, 2022 Subjective comfortable with epidural Assessment & Plan (1) Encounter for elective induction of labor: (2) 39 weeks gestation of : Plan good cx change. c/w pit. reeval cx in 2hr. Admission and Anticipated Discharge Date Admission Date: August 05, 2022 Physical Exam Constitutional: WD/WN, vitals as above Genitourinary: Manual OB Exam: + cervical dilation 4 cm, + cervical effacement 80% and + station -2 OB Exam Monitor Tracing: + external FHT monitor used, + external uterine monitor used (q2 pit at 9), + category I and + normal FHT variability Results & Data ([facility]) Vital Signs (Past 12 Hours) Vital Signs Temp Pulse Resp BP Pulse Ox 08/05/22 17:08 85 124/67 08/05/22 17:06 111 H 100 08/05/22 17:02 93 H 125/85 08/05/22 17:01 102 H 99 08/05/22 16:57 99 H 125/76 08/05/22 16:56 86 99 08/05/22 16:51 109 H 98 08/05/22 16:52 107 H 127/81 08/05/22 16:47 106 H 126/83 08/05/22 16:46 108 H 99 08/05/22 16:43 106 H 129/82 08/05/22 16:41 111 H 99 08/05/22 16:38 109 H 132/80 08/05/22 16:36 102 H 98 08/05/22 16:29 18 08/05/22 16:29 18 08/05/22 16:04 16 08/05/22 16:04 16 08/05/22 16:07 16 08/05/22 16:07 16 08/05/22 16:15 16 08/05/22 16:15 16 08/05/22 16:18 18 08/05/22 16:18 18 08/05/22 16:33 105 H 131/80 08/05/22 16:31 112 H 99 08/05/22 16:27 102 H 133/80 08/05/22 16:26 104 H 99 08/05/22 16:22 105 H 139/85 08/05/22 16:21 109 H 99 08/05/22 16:16 110 H 99 08/05/22 16:17 103 H 129/79 08/05/22 16:11 101 H 16 130/79 99 08/05/22 16:09 107 H 130/83 08/05/22 16:07 18 08/05/22 16:07 98.2 F 102 H 18 127/86 08/05/22 16:06 105 H 100 08/05/22 16:05 101 H 128/84 08/05/22 16:03 107 H 141/82 H 08/05/22 16:01 106 H 144/85 H 100 08/05/22 15:59 100 H 143/86 H 08/05/22 15:57 106 H 142/83 H 08/05/22 15:56 106 H 144/82 H 100 08/05/22 15:51 106 H 99 08/05/22 15:46 103 H 98 08/05/22 15:41 96 H 97 08/05/22 15:42 104 H 116/80 08/05/22 15:27 90 116/82 08/05/22 15:13 90 121/86 08/05/22 14:10 98.6 F 08/05/22 12:50 101 H 126/79 08/05/22 12:46 99.0 F 16 Coding Level of Care Code None Diagnoses Encounter for elective induction of labor Z34.90 39 weeks gestation of Z3A.39
--- NOTE | 2022-08-05 20:34 | Delivery Summary ---
Vaginal Delivery Summary Date of Service August 05, 2022 Vaginal Delivery Summary The patient dilated to complete and pushed to deliver a viable male Apgars 8 and 9 via over intact perineum. Mouth and nose bulb suctioned at perineum. Shoulders and body delivered with ease. was vigorous and crying at . Cord clamped at 30 seconds of life and infant to maternal abdomen where the cord was then doubly clamped and cut. Placenta delivered spontaneously and intact, three-vessel cord. Hemostasis achieved with dilute pitocin and uterine massage and drainage of the bladder for approximately 100 cc under sterile conditions. Small superficial skin separations at perineum noted but not bleeding and so did not require repair. Cervix and sulci intact. EBL 300 cc. Mother and baby stable in recovery. [facility] Vaginal Delivery Charge Delivery Type Details:
[2022-08-05] MEDS ORDERED: OXYTOCIN 20 UNITS in LACTATED RINGER'S 1,000 ML IV SCH (20:48)
[2022-08-05] MEDS ORDERED: HYDROCORTISONE ACETATE 25 MG SUPP PR PRN (20:48)
[2022-08-05] MEDS ORDERED: BENZOCAINE 20% AER SPR 82.5 GM CAN EXT PRN (20:48)
[2022-08-05] MEDS ORDERED: bisacodyL 10 MG SUPP PR PRN (20:48)
[2022-08-05] MEDS ORDERED: oxyCODONE/ACETAMINOPHEN 5mg/325mg TAB PO PRN (20:48)
[2022-08-05] MEDS ORDERED: DIPHTHERIA/TETANUS/PERTUSSIS 0.5mL SYR/VIAL (Age 7+yrs) IM ONE (20:48)
[2022-08-05] MEDS: IBUPROFEN 600 MG TAB PO PRN (21:00)
[2022-08-05] MEDS: DOCUSATE SODIUM 100 MG CAP PO SCH (21:12)
--- NOTE | 2022-08-05 21:41 | Anesthesia Procedure Note ---
Date of Service August 05, 2022 Anesthesia Post Epidural Note Vital Signs Vital Signs: Temp Pulse Resp BP Pulse Ox 98.4 F 98 H 18 127/79 93 08/05/22 19:04 08/05/22 21:38 08/05/22 21:23 08/05/22 21:38 08/05/22 20:24 Pain Intensity Pelvic: Pain Intensity: 4 Notes Mental Status: alert / awake / arousable and participated in evaluation Nausea / Vomiting: adequately controlled Pain: adequately controlled Airway Patency, RR, SpO2: stable & adequate BP & HR: stable & adequate Hydration State: stable & adequate Neuraxial Anesthesia: was administered and sensory block is resolving Anesthetic Complications: no major complications apparent and Pt Satisfied with anesthetic care Epidural: Removed without complications and With tip intact
[2022-08-06] MEDS: IBUPROFEN 600 MG TAB PO PRN ×4 (03:12→17:45)
--- NOTE | 2022-08-06 05:23 | Obstetrical Progress Note ---
Date of Service August 06, 2022 Assessment & Plan (1) care and examination: Plan stable, routine care. Day #:: 1 Subjective Ambulation: ambulating normally Voiding: no voiding problems Diet Tolerance:: regular diet Lochia:: Small Feeding Type:: breast feeding doing well. no complaints. she notes baby is sleepy, trying to breastfeed. Constitutional: + as per Subjective / HPI Physical Exam Constitutional WD/WN, vitals as above Respiratory normal respiratory effort, lungs clear to auscultation Cardiovascular Rate/Rhythm: regular rate and regular rhythm Gastrointestinal (Abdomen) Inspection/Auscultation: abdomen normal to inspection Percussion/Palpation: abdomen soft; abdomen nontender Fundus firm 3cm down Musculoskeletal nt calves no edema Neurologic grossly normal Psychiatric A+Ox3, euthymic affect Results & Data ([facility]) Vital Signs (Past 12 Hours) Vital Signs Temp Pulse Pulse Resp BP BP Pulse Ox 08/06/22 03:45 98.1 F 90 18 134/86 97 08/06/22 01:17 97.9 F 86 18 124/86 98 08/05/22 22:26 18 08/05/22 22:58 98.6 F 18 08/05/22 21:11 18 08/05/22 21:23 18 08/05/22 20:53 20 08/05/22 20:38 20 08/05/22 20:26 20 08/06/22 00:18 96 H 98 08/06/22 00:13 100 H 97 08/06/22 00:12 84 106/60 08/06/22 00:08 93 H 98 08/06/22 00:03 107 H 98 08/05/22 23:58 94 H 98 08/05/22 23:57 96 H 116/67 08/05/22 23:53 104 H 98 08/05/22 23:48 100 H 98 08/05/22 23:43 112 H 97 08/05/22 23:42 105 H 124/73 08/05/22 23:38 103 H 98 08/05/22 23:33 115 H 98 08/05/22 23:28 104 H 98 08/05/22 23:27 98 H 113/65 08/05/22 23:23 104 H 97 08/05/22 23:18 109 H 97 08/05/22 23:13 106 H 97 08/05/22 23:12 100 H 120/65 08/05/22 23:08 104 H 98 08/05/22 23:03 102 H 98 08/05/22 22:58 117 H 98 08/05/22 22:57 99 H 123/81 08/05/22 22:42 104 H 119/70 08/05/22 22:26 101 H 134/84 08/05/22 22:23 111 H 124/76 08/05/22 22:08 110 H 122/69 08/05/22 21:53 101 H 136/79 08/05/22 21:38 98 H 127/79 08/05/22 21:23 106 H 129/78 08/05/22 21:11 107 H 129/79 08/05/22 20:56 120 H 134/87 08/05/22 20:53 131 H 143/96 H 08/05/22 20:38 114 H 131/67 08/05/22 20:26 131 H 141/67 H 08/05/22 20:24 123 H 93 08/05/22 20:23 129 H 138/100 08/05/22 20:21 156 H 99 08/05/22 20:16 143 H 100 08/05/22 20:11 133 H 100 08/05/22 20:10 108 H 130/102 H 08/05/22 20:06 127 H 100 08/05/22 20:01 119 H 100 08/05/22 19:56 117 H 100 08/05/22 19:55 113 H 134/92 08/05/22 19:51 117 H 99 08/05/22 19:46 108 H 98 08/05/22 19:41 107 H 99 08/05/22 19:40 102 H 132/81 08/05/22 19:36 116 H 98 08/05/22 19:31 113 H 98 08/05/22 19:26 107 H 98 08/05/22 19:24 111 H 121/88 08/05/22 19:21 104 H 98 08/05/22 19:16 105 H 98 08/05/22 19:11 105 H 98 08/05/22 19:09 108 H 137/84 08/05/22 19:06 121 H 100 08/05/22 19:04 18 08/05/22 19:04 98.4 F 18 08/05/22 19:01 113 H 100 08/05/22 19:00 18 08/05/22 19:00 18 08/05/22 18:56 114 H 100 08/05/22 18:54 122 H 132/88 08/05/22 18:51 116 H 98 08/05/22 18:46 112 H 98 08/05/22 18:41 116 H 98 08/05/22 18:38 107 H 123/75 08/05/22 18:36 104 H 97 08/05/22 18:31 113 H 96 08/05/22 18:26 102 H 98 08/05/22 18:03 98.2 F 08/05/22 18:00 18 08/05/22 18:00 18 08/05/22 18:23 105 H 127/88 08/05/22 18:21 102 H 98 08/05/22 18:16 107 H 98 08/05/22 18:11 97 H 99 08/05/22 18:09 104 H 137/95 08/05/22 18:06 104 H 99 08/05/22 18:01 106 H 99 08/05/22 17:56 101 H 96 08/05/22 17:55 96 H 113/71 08/05/22 17:51 99 H 99 08/05/22 17:46 93 H 100 08/05/22 17:41 99 H 98 08/05/22 17:40 89 115/70 08/05/22 17:36 93 H 98 08/05/22 17:29 16 08/05/22 17:29 16 08/05/22 17:31 100 H 96 08/05/22 17:26 101 H 100 08/05/22 17:24 94 H 120/79 O2 Del Method 08/06/22 03:45 Room Air 08/06/22 01:17 Room Air 08/05/22 22:26 08/05/22 22:58 08/05/22 21:11 08/05/22 21:23 08/05/22 20:53 08/05/22 20:38 08/05/22 20:26 08/06/22 00:18 08/06/22 00:13 08/06/22 00:12 08/06/22 00:08 08/06/22 00:03 08/05/22 23:58 08/05/22 23:57 08/05/22 23:53 08/05/22 23:48 08/05/22 23:43 08/05/22 23:42 08/05/22 23:38 08/05/22 23:33 08/05/22 23:28 08/05/22 23:27 08/05/22 23:23 08/05/22 23:18 08/05/22 23:13 08/05/22 23:12 08/05/22 23:08 08/05/22 23:03 08/05/22 22:58 08/05/22 22:57 08/05/22 22:42 08/05/22 22:26 08/05/22 22:23 08/05/22 22:08 08/05/22 21:53 08/05/22 21:38 08/05/22 21:23 08/05/22 21:11 08/05/22 20:56 08/05/22 20:53 08/05/22 20:38 08/05/22 20:26 08/05/22 20:24 08/05/22 20:23 08/05/22 20:21 08/05/22 20:16 08/05/22 20:11 08/05/22 20:10 08/05/22 20:06 08/05/22 20:01 08/05/22 19:56 08/05/22 19:55 08/05/22 19:51 08/05/22 19:46 08/05/22 19:41 08/05/22 19:40 08/05/22 19:36 08/05/22 19:31 08/05/22 19:26 08/05/22 19:24 08/05/22 19:21 08/05/22 19:16 08/05/22 19:11 08/05/22 19:09 08/05/22 19:06 08/05/22 19:04 08/05/22 19:04 08/05/22 19:01 08/05/22 19:00 08/05/22 19:00 08/05/22 18:56 08/05/22 18:54 08/05/22 18:51 08/05/22 18:46 08/05/22 18:41 08/05/22 18:38 08/05/22 18:36 08/05/22 18:31 08/05/22 18:26 08/05/22 18:03 08/05/22 18:00 08/05/22 18:00 08/05/22 18:23 08/05/22 18:21 08/05/22 18:16 08/05/22 18:11 08/05/22 18:09 08/05/22 18:06 08/05/22 18:01 08/05/22 17:56 08/05/22 17:55 08/05/22 17:51 08/05/22 17:46 08/05/22 17:41 08/05/22 17:40 08/05/22 17:36 08/05/22 17:29 08/05/22 17:29 08/05/22 17:31 08/05/22 17:26 08/05/22 17:24
[2022-08-06] MEDS: ACETAMINOPHEN 325 MG TAB PO PRN ×3 (06:28→18:23)
[2022-08-06] MEDS: DOCUSATE SODIUM 100 MG CAP PO SCH ×2 (08:32→21:06)
[2022-08-06] MEDS: PRENATAL VITAMIN 1 TAB PO SCH (08:32)
[2022-08-06] MEDS ORDERED: PANTOprazole 40 MG TAB PO SCH (09:00)
[2022-08-07] MEDS ORDERED: Nursing to Pharmacy Communication SCH (07:30)
--- NOTE | 2022-08-07 07:31 | Obstetrical Progress Note ---
Date of Service August 07, 2022 Assessment & Plan (1) care and examination: PPD#2 doing well. well. DC home today. Instructions reviewed, followup 6w PP. Subjective Ambulation: ambulating normally Voiding: no voiding problems Diet Tolerance:: regular diet Lochia:: Moderate Review of Systems All systems reviewed & are unremarkable except as noted in HPI & below Physical Exam Constitutional WD/WN, vitals as above no acute distress Respiratory normal respiratory effort Cardiovascular Rate/Rhythm: regular rate and regular rhythm Gastrointestinal (Abdomen) Inspection/Auscultation: abdomen normal to inspection; abdomen not distended Percussion/Palpation: abdomen soft Genitourinary OB Exam Abdomen: + fundal height Fundus: + firm; not tender Results & Data ([facility]) Vital Signs (Past 12 Hours) Vital Signs Temp Pulse Resp BP Pulse Ox O2 Del Method 08/06/22 22:59 36.9 C 90 18 114/74 97 Room Air 08/06/22 20:49 36.8 C 94 H 18 136/84 98 Room Air
[2022-08-07] MEDS: PRENATAL VITAMIN 1 TAB PO SCH (08:16)
[2022-08-07] MEDS: DOCUSATE SODIUM 100 MG CAP PO SCH (08:16)
== END 2022-08-07 12:52 | disposition home or self-care (01) | DRG 807 ==
LOC: 4S1 12:29 → 4E2 08-06 00:44